=== PATIENT | female | born 1975 | race Caucasian/White ===

== ENCOUNTER 2019-02-08 03:00 | Emergency (ER) | payer MEDICAID, SELFPAY ==
[~2019-02-08] VITALS: Ht 162.6 cm; Wt 62.7 kg
--- NOTE | 2019-02-08 03:17 | NUR ---
Pt reports having back surgery 02/07 for herniated discs to L5, S1. Reports being able to ambulate and "felt good" after surgery. Around 2pm yesterday pt developed left sided leg pain, weakness, and decreased sensation. Pt went to where she had surgery, no MRI available at night, pt was sent here for MRI
[2019-02-08] MEDS ORDERED: ONDANSETRON 2MG/ML, 2ML ONE (03:19)
[2019-02-08] MEDS ORDERED: ONDANSETRON 2MG/ML, 2ML IVPush ONE (03:30)
[2019-02-08] MEDS ORDERED: HYDROmorphone 1 MG/ML, 1ML IV ONE (03:30)
[2019-02-08] MEDS ORDERED: DIAZEPAM 5 MG/ML, 2ML IV ONE (03:30)
[2019-02-08] MEDS ORDERED: HYDROmorphone 1 MG/ML, 1ML ONE ×2 (03:35→05:17)
--- NOTE | 2019-02-08 03:36 | NUR ---
MRI form completed and faxed, radiology called as well to notify of MRI order. Pt requesting water/ice chips notifed, pt aware of NPO due to potential for surgery
--- NOTE | 2019-02-08 03:40 | NUR ---
Pt reports decreased pain after valium, 5/10, states that is a tolerable level of pain, denies need for further medication, educated to notify RN if pain begins to increase.
[2019-02-08] MEDS ORDERED: ARIP2TAB2 PO (03:41)
[2019-02-08] MEDS ORDERED: CITA10TA8 PO (03:41)
--- NOTE | 2019-02-08 04:16 | NUR ---
Pt updated on wait time for MRI, pt reports feeling less anxious and tolerable level of pain still.
[2019-02-08 04:17] LABS: BASOPHILS # (AUTO) 0.08 x10^3/uL (0-0.1); BASOPHILS % (AUTO) 1 % (0-1); EOSINOPHILS # (AUTO) 0.08 x10^3/uL (0-0.4); EOSINOPHILS % (AUTO) 1 % (1-7); LYMPHOCYTES % (AUTO) 34 % (22-44); MD NO; MEAN CORPUSCULAR HEMOGLOBIN 33.1 pg (27.0-34.8); MEAN CORPUSCULAR HGB CONC 34.9 g/dL (32.4-35.8); MEAN CORPUSCULAR VOLUME 94.8 fL (80-100); MEAN PLATELET VOLUME 8.4 fL (7.4-10.4); MONOCYTES # (AUTO) 0.52 x10^3/uL (0.2-0.8); MONOCYTES % (AUTO) 9 % (2-9); NEUTROPHILS # (AUTO) 3.17 x10^3/uL (1.8-6.8); NEUTROPHILS % (AUTO) 54 % (42-75); PLATELET COUNT 165 x10^3/uL (130-400); RED BLOOD COUNT 4.06 x10^6/uL (3.82-5.3); RED CELL DISTRIBUTION WIDTH 12.6 % (9.6-15.2)
[2019-02-08 04:21] LABS: ALBUMIN 3.9 g/dL (3.4-5.0); ANION GAP 4 mmol/L (5-15); CALCIUM 8.4 mg/dL (8.5-10.1); CHLORIDE 114 mmol/L (98-107)
[2019-02-08 04:26] LABS: ALANINE AMINOTRANSFERASE 17 U/L (12-78); ALKALINE PHOSPHATASE 62 U/L (45-117); BILIRUBIN,TOTAL 0.6 mg/dL (0.2-1.0); CREATININE 0.87 mg/dL (0.55-1.02); TOTAL PROTEIN 6.7 g/dL (6.4-8.2)
--- NOTE | 2019-02-08 04:41 | NUR ---
Pt to MRI
[2019-02-08] MEDS ORDERED: GADOBUTROL 7.5 MMOL/7.5 ML PFS ONE (04:43)
--- NOTE | 2019-02-08 05:15 | NUR ---
in for recheck, pt agrees to poc (dc), pt medicated for increasing pain, agrees to delay dc per policy after med administration.
[2019-02-08 05:22] VITALS: BP 124/78
--- NOTE | 2019-02-08 05:34 | NUR ---
Pt able to transfer from gurney to wheelchair without assistance, pt dc'd with spouse, states she has a cane at home that uses and feels comfortable going home and being able to ambulate
== END 2019-02-08 05:50 | disposition home or self-care (01) ==
LOC: ED 05:30
DX: M54.16 Radiculopathy, lumbar region (principal); M96.843 Postprocedural seroma of a musculoskeletal structure following other procedure
CPT/HCPCS: 36415; 72158; 80053; 85025; 96374; 96375; 99284; A9585; J1170; J2405; J3360